=== PATIENT | female | born 1995 ===

== ENCOUNTER → 2018-11-14 | Outpatient (CLI) | payer OTHER ==
--- NOTE | 2018-11-14 16:51 | RADIOLOGY IMAGING REPORT ---
FACILITY: [facility] PATIENT NAME: Mary Poe : 1995 MR: [id number] V: [id number] EXAM DATE: ORDERING PHYSICIAN: ALEX MANNING TECHNOLOGIST: Location: [facility] Patient: Mary Poe : 1995 Visit/Account:[id number] Date of Sevice: 11/14/2018 CT VERTEBRA LUMBAR (NON CON) COMPARISONS: None. ADDITIONAL PERTINENT HISTORY: Low back pain. Patient status post discography.. TECHNIQUE: Multiple axial images were obtained through the lumbar spine without IV contrast. Solano l and sagittal reformatted images were obtained off the axial source data. One of the following dose optimization techniques was utilized in the performance of this exam: Automated exposure control; ad justment of the mA and/or kV according to the patient's size; or use of an iterative reconstruction technique. Specific details can be referenced in the facility's radiology CT exam operational policy . FINDINGS: Vertebral body heights and alignment: Negative. Vertebral bodies: Negative. Disc spaces: Patient status post discography at the levels of L5-S1, L4-L5 and L3-L4. This is extensi on of the contrast material beyond the posterior annulus in a broad-based fashion at the level of L5- S1 with a posterior broad-based disc protrusion. There is extension of contrast beyond the expected l ocation of the posterior annulus at the level of L4-L5 with a circumferential disc bulge at this leve l. Contrast remains confined within the expected location of the disc space anterior to the posterior annulus at the level of L3-L4. Thoraco-lumbar junction: Negative. Surrounding soft tissues: <Negative Visualized bony pelvis: Negative. IMPRESSION: 1. Patient status post discography at the levels of L3-L4, L4-L5 and L5-S1 as detailed above. 2. No acute appearing bony abnormalities. Report Dictated By: Efrain Tang MD at 11/14/2018 4:42 PM Report E-Signed By: Efrain Tang MD at 11/14/2018 4:45 PM WSN:[email or web address]
== END ==
LOC: CT 11:55
PROVIDERS: ATTEND Physical Medicine & Rehabilitation Pain Medicine
DX: M54.5 Low back pain (principal)
CPT/HCPCS: 72131

== ENCOUNTER → 2018-11-14 | Outpatient (CLI) | payer SELFPAY | LOC: CT 01:24 | PROVIDERS: ATTEND Physical Medicine & Rehabilitation Pain Medicine | DX: Z02.9 Encounter for administrative examinations, unspecified (principal) ==

== ENCOUNTER 2019-01-07 00:28 | Inpatient (IN) | payer OTHER ==
[2019-01-07] VITALS (14 sets, daily range): BP systolic 100–124; BP diastolic 57–83
[~2019-01-07] VITALS: Ht 162.6 cm; Wt 77.1 kg
[~2019-01-07 00:28] MED LIST: ACET-3017 PO; SCOP1PAT2 TD
[2019-01-07] MEDS ORDERED: LIDOCAINE 2% IV 100 MG/5ML SYR ONE (07:45)
[2019-01-07] MEDS ORDERED: fentaNYL CITR 250 MCG/5 ML AMP ONE (07:45)
[2019-01-07] MEDS ORDERED: PROPOFOL EMUL(*) 10MG/ML 20 ML 80 ML ONE (07:46)
[2019-01-07] MEDS ORDERED: ROCURONIUM BR 10 MG/ML 5 ML SY 5 ML ONE (07:56)
[2019-01-07] MEDS: PREGABALIN 150 MG CAPSULE PO ONE ×2 (08:13→09:03)
[2019-01-07] MEDS ORDERED: ACETAMINOPHEN(*)1000 MG/100 ML 100 ML IVPB ONE ×2 (08:25→09:23)
[2019-01-07] MEDS: FAMOTIDINE 20 MG/50 ML PREMIX IVPB ONE (08:25)
[2019-01-07] MEDS ORDERED: FAMOTIDINE 20 MG TAB PO ONE (09:10)
[2019-01-07] MEDS ORDERED: BACITRACIN 50000 UNIT/VIAL 50,000 UNIT in NS 0.9% IRRIG(*) 1000ML PLCT 1,000 ML IR PRN (09:10)
[2019-01-07] MEDS ORDERED: ACETAMINOPHEN 500 MG TAB PO ONE (09:10)
[2019-01-07] MEDS ORDERED: MIDAZOLAM 2 MG/2 ML VIAL IVP PRN (09:10)
[2019-01-07] MEDS ORDERED: NORMOSOL R SOLN(*) 1000 ML BAG 1,000 ML IV PRN (09:10)
[2019-01-07] MEDS ORDERED: ceFAZolin(*) 2GM/D5W 50ML 50 ML IVPB ONE (09:10)
[2019-01-07] MEDS ORDERED: LIDOCAINE/SOD BICARB 8.4% SYR ID ONE (09:10)
[2019-01-07] MEDS ORDERED: DEXAMETHASONE SOD PHOS 10MG/ML ONE (10:38)
[2019-01-07] MEDS ORDERED: KETAMINE HCL 200 MG/20 ML MDV ONE ×2 (10:44→11:44)
[2019-01-07] MEDS ORDERED: ONDANSETRON 4 MG/2 ML VIAL ONE (11:03)
[2019-01-07] MEDS ORDERED: SUGAMMADEX SOD 200 MG/2 ML SDV ONE (11:42)
[2019-01-07] MEDS ORDERED: PROPOFOL EMUL(*) 10MG/ML 20 ML 20 ML ONE (12:14)
[2019-01-07] MEDS ORDERED: fentaNYL CITR 100 MCG/2 ML AMP ONE ×3 (12:51→14:42)
--- NOTE | 2019-01-07 14:12 | RADIOLOGY IMAGING REPORT ---
FACILITY: [facility] PATIENT NAME: Mary Poe : 1995 MR: [id number] V: [id number] EXAM DATE: [id number] ORDERING PHYSICIAN: GENET CASAS TECHNOLOGIST: [facility] Patient: Mary Poe : 1995 Visit/Account:[id number] Date of Sevice: 01/07/2019 Exam type: C-ARM FLUORO 1 HR History: L4-S1 DISC HERNIATION/FUSION Comparison: CT November 14, 2018. Findings: Six portable intraoperative C-arm spot views over the lower lumbar spine were submitted demonstrating placement of intervertebral disc spacers with anchoring screws at the levels of L4-5 and L5-S1. The dose area product was 5.2797 Foote per centimeter squared IMPRESSION: 1. As above Report Dictated By: Lila De La Cruz MD at 01/07/2019 1:59 PM Report E-Signed By: Lila De La Cruz MD at 01/07/2019 2:03 PM WSN:[id number]
--- NOTE | 2019-01-07 14:24 | OPERATIVE REPORT 1 ---
EVENT DATE: January 07, 2019 SURGEON: Chandan Watts MD ANESTHESIOLOGIST: Jax Hodges MD ANESTHESIA: General. APPROACH SURGEON: Elliot Emanuel M.D., plus his surgery assistant. 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 POSTOPERATIVE DIAGNOSIS Lumbar degenerative disk disease with unremitting low back pain. PROCEDURE PERFORMED L4-L5 and L5-S1 anterior lumbar interbody fusion. INTRAVENOUS FLUIDS 2400 cc ESTIMATED BLOOD LOSS 60 cc IMPLANTS USED 1. Size small 13 mm tall, 8-degree lordotic interbody spacer at the L4-L5 level. 2. Size small 13 mm, 12-degree lordotic interbody device at the L5-S1 level. 3. 25 mm fixation screws x2. 4. 30 mm fixation screws x4. 5. Two 5 cc ViBone bone graft replacements. SPECIMENS None. DRAINS None. COMPLICATIONS None. DISPOSITION Post-Anesthesia Care Unit. INDICATIONS FOR SURGERY Mary is a 23-year old female who presented to my clinic with a long history of unremitting low back pain. It had been present for a few years and was initially associated with some radiating symptoms down the legs. She had relief of the leg symptoms with an injection but had ongoing significant pain in her lower back and had tried physical therapy, the injections, medications, activity modifications, all without any improvement. She had an unremarkable past medical and past surgical history with no narcotic usage or psychiatric diagnoses noted. We sent her for a lumbar diskogram and this was found to be concordant not only at the L5-S1 level, which was seen to be desiccated and degenerative on MRI but also at the L4-L5 level and there were posterior annular leaks of the contrast on CT scan at both of those levels. Secondary to ongoing symptoms, failure of nonsurgical care and the findings of the diskogram, Ms. Poe was offered and elected to undergo L4-L5 and L5-S1 anterior lumbar interbody fusion. Prior to surgery, I explained in detail to the patient the possible risks of surgery. These risks include bleeding, infection, damage to surrounding structures, nerve root injury, spinal fluid leak, infection, meningitis, failure of fixation, need for further surgery, , blindness, sexual dysfunction, autonomic nervous system dysfunction and other unforeseen medical and surgical complications. An understanding that in general spinal surgery is more predictive at improving extremity discomfort than axial spine pain was stressed. DESCRIPTION OF PROCEDURE On the date of surgery, the patient was met in the preoperative hold area and all questions were answered. The operative site was identified and marked by myself. The patient had the opportunity to speak to both me and Dr. Emanuel prior to the procedure. She was then brought in good condition to the operating room and placed in the supine position on a radiolucent Nabil table. All bony protuberances and soft tissues were well padded in the standard fashion. Care was taken to maintain appropriate perfusion pressures during anesthesia. Preoperative antibiotics were administered according to the appropriate timing schedule. A Dugan catheter was placed to decompress the bladder for the approach. At the conclusion of the procedure, sponge and instrument count were correct x2. A final time-out was undertaken by members of the operating team to confirm correct patient, correct levels and correct surgery. Dr. Emanuel then performed a retroperitoneal anterior approach to the lumbar spine. Please refer to his dictation for description of that approach. Once the spine was exposed, I started at the L4-L5 level. A knife was used to perform an anterior annulotomy of the L4-L5 disk. A Hitchcock elevator was used to separate the disk from the bony endplates of both L4 and L5. A combination of pituitary rongeurs and curettes were then used to perform a subtotal diskectomy of the L4-L5 disk. Once we had removed all cartilaginous remnants from the end plates of the vertebral body above and below to ensure that there was bony bleeding from the bony endplates, we trialed first an 11 mm implant, which was not large enough. The 13 mm implant fit well and looked good on radiographs. We, therefore, the 13 mm, 8-degree lordotic, size small implant and packed it with ViBone. This was then placed in the interbody space, where it had a good fit, and lateral radiographs confirmed appropriate placement. We then used the awl to penetrate the endplates through the integrated holes within the device and then was placed a single screw into the L5 vertebral body and two screws up into the L4 vertebral body. Radiographs were obtained that confirmed excellent placement of the device. Retractors were then moved and attention was turned to the L5-S1 level. Again, I performed an annulotomy and then used a combination of Hitchcock elevators, curettes and pituitary rongeurs to perform a subtotal diskectomy. At this level, we also selected at 13 mm implant but selected a 12-degree lordosis. This was placed under fluoroscopic guidance and again we used the awl to penetrate the endplates and then placed a single 25 mm screw into the sacrum and two 30 mm screws up into the L5 vertebral body. Final radiographs were obtained, confirming excellent positioning of both implants. The wound was then irrigated with copious sterile saline solution and closed in layers using interrupted sutures for the posterior sheath, running stitch for the anterior rectus sheath and then inverted interrupted sutures for the subcutaneous tissue and a running subcuticular skin stitch. Sponge and needle counts were correct x2. POSTOPERATIVE CARE PLAN Ms. Poe will remain in the hospital until she meets discharge criteria. She will then be discharged home and will followup with me in approximately two weeks for a wound check and examination. VAISHALI
[2019-01-07] MEDS ORDERED: ACETAMINOPHEN(*)1000 MG/100 ML 100 ML IVPB PRN (14:30)
[2019-01-07] MEDS ORDERED: LR(*) 1000 ML BAG 1,000 ML IV PRN (14:30)
[2019-01-07] MEDS ORDERED: MAGNESIUM HYDROXIDE* 30ML UDCP PO PRN (14:30)
[2019-01-07] MEDS ORDERED: diphenhydrAMINE 25 MG CAP PO PRN (14:30)
[2019-01-07] MEDS ORDERED: ACETAMINOPHEN 500 MG TAB PO PRN (14:30)
[2019-01-07] MEDS ORDERED: oxyCODONE HCL 5 MG CAP PO PRN (14:30)
[2019-01-07] MEDS ORDERED: FLUSH 10 ML SYR IVP PRN (14:30)
[2019-01-07] MEDS ORDERED: BENZOCAINE/MENTHOL 1 EACH LOZG PO PRN (14:30)
[2019-01-07] MEDS ORDERED: BISACODYL 10 MG SUPP PR PRN (14:30)
[2019-01-07] MEDS ORDERED: DIAZEPAM 5 MG TAB PO PRN (14:30)
[2019-01-07] MEDS ORDERED: ONDANSETRON 4 MG/2 ML VIAL IVP PRN (14:30)
[2019-01-07] MEDS ORDERED: HYDROmorphone HCL 2 MG/ML SDV IVP PRN (14:30)
[2019-01-07] MEDS ORDERED: PROMETHAZINE 25 MG/ML 1 ML AMP ONE (15:45)
--- NOTE | 2019-01-07 15:59 | NUR ---
Physical Therapy Impression Attempted to see Pt for PT eval and tx. Pt politely declines PT at this time due to drowsiness. Pt recently arrived to hospital room. Will attempt eval in AM. Physical Therapy Goals Patient's Goals
[2019-01-07] MEDS: ceFAZolin(*) 2GM/D5W 50ML 50 ML IVPB SCH (17:00)
[2019-01-07] MEDS ORDERED: NS(*) 0.9% 250 ML BAG 250 ML ONE (17:23)
[2019-01-07] MEDS: APAP/HYDROCODONE 325/5 TAB PO PRN (19:39)
[2019-01-07] MEDS: DOCUSATE SODIUM 100 MG CAP PO SCH (20:36)
[2019-01-08] VITALS (7 sets, daily range): BP systolic 100–123; BP diastolic 53–67
[2019-01-08] MEDS: ceFAZolin(*) 2GM/D5W 50ML 50 ML IVPB SCH ×2 (01:32→08:39)
[2019-01-08] MEDS: APAP/HYDROCODONE 325/5 TAB PO PRN ×3 (01:32→22:10)
[2019-01-08] MEDS ORDERED: LOR5/325 PO (08:02)
[2019-01-08] MEDS ORDERED: DIA5 PO (08:03)
[2019-01-08] MEDS ORDERED: DOCU240C84 PO (08:04)
[2019-01-08] MEDS: DOCUSATE SODIUM 100 MG CAP PO SCH ×2 (08:39→20:27)
--- NOTE | 2019-01-08 10:16 | NUR ---
Physical Therapy Impression Pt educated on lumbar precautions with returned verbal understanding. Pt able to safely perform functional mobility without assistance. Of concern, however, is Pt's reports of dizziness with mobility. VSS throughout treatment. Recommend Pt ambulate with nursing for additional bouts. If dizziness remains, Pt not safe to DC. If dizziness resolves, Pt safe for DC. Discussed plan with Pt and nursing, both are agreeable. Physical Therapy Goals 1. Pt tolerate functional mobility without reports of dizziness. Patient's Goals
[2019-01-09 02:30] VITALS: BP 115/70
[2019-01-09 07:02] VITALS: BP 128/71
[2019-01-09] MEDS: DOCUSATE SODIUM 100 MG CAP PO SCH (09:00)
--- NOTE | 2019-01-09 10:26 | NUR ---
Physical Therapy Impression Pt tolerated ambulation in hallway x 150' with no AD. Pt then agreeable to address stairs in ICU dept. Pt notes increased dizziness and is diaphoretic at top of stairs. Pt assisted to sit down onto upper level of stairs for a rest break and deep breathing. Pt also indicates some nausea. Pt then was able to tolerate descent of 11 steps with CGA/Min assist by PT. VS checked upon return to room and BP, HR and SpO2 all in normal limits. Nursing alerted and also checked blood sugar which was 104. Pt had some tyler julia while being wheeled back to room. Pt's lips were also very pale/purple in color. As pt rested, color in lips did return. Nursing indicates she will inform hospitalist. PT consulted with surgeon regarding any possible surgical concerns and to verify that no brace has been ordered. Dr. Watts indicates no brace is correct and recommends further consult with hospitalist as well regarding possible other sources of diaphoresis. Physical Therapy Goals 1. Pt tolerate functional mobility without reports of dizziness. Patient's Goals
[2019-01-09 11:09] LABS: PLATELET COUNT, AUTOMATED 282 K/uL (150-450)
--- NOTE | 2019-01-09 12:10 | OPERATIVE REPORT 1 ---
EVENT DATE: January 08, 2019 SURGEON: Elliot Emanuel MD ANESTHESIOLOGIST: [] ANESTHESIA: General endotracheal. FIELD SERVICE REP: [] CO-SURGEON: Chandan Watts MD PREOPERATIVE DIAGNOSIS Degenerative disk disease with radiculopathy of the L4-L5, L5-S1 disk space. POSTOPERATIVE DIAGNOSIS Degenerative disk disease with radiculopathy of the L4-L5, L5-S1 disk space. GENERAL SURGICAL PROCEDURE PERFORMED Anterior spine exposure of the L4-5, L5-S1 disk space for Dr. Chandan Watts for anterior lumbar interbody fusion of these two disk spaces. ESTIMATED BLOOD LOSS Minimal. COMPLICATIONS None. ASA Class 2. DESCRIPTION OF PROCEDURE Informed consent was obtained. The patient was placed in the supine position and prepped and draped in normal sterile fashion. He was administered general anesthesia. Time-out was completed in the operating room correct . Patient began preoperative antibiotics at this time. A left midline incision was constructed from the umbilicus towards the suprapubic region. With Bovie electrocautery, I dissected the subcutaneous tissue to the level of the anterior rectus sheath fascia. This was incised along the entire extent of the incision, at which time the rectus muscle was retracted laterally to expose the transversalis fascia below the semilunar line of Garth. This was followed posteriorly and laterally to gain access to the retroperitoneal space. The abdominal viscera and the peritoneum were retracted medially over the great vessels. Posterior rectus sheath above the semilunar of Garth was taken down laterally. The L5-S1 disk space was dissected free of surrounding tissue. The median sacral vessels were taken down with clip, cut and ligate technique. Once adequate exposure was achieved at the L5-S1 disk space, the L4-L5 disk space was then dissected free. The posterior iliolumbar vein was taken with clip, cut and ligate technique and the left iliac artery was then retracted medially over the L4-5 disk space. With the facilitation of Synthes retracting system, the spaces were adequately exposed and the case was turned over to Dr. Chandan Watts for the remainder of the spinal case. [facility]
[2019-01-09 12:22] VITALS: BP 121/70
--- NOTE | 2019-01-09 12:54 | Hospitalist Consultation ---
History of Present Illness Requesting Physician Dr. Watts Reason for Consult Dizziness with ambulation Chief Complaint Dizziness with ambulation History of Present Illness She is a 23-year-old female who is s/p lumbar fusion. She reports yesterday and today she became dizzy with ambulation. She denies any complaints at this time. She also reports she looks pale. She reports with ambulation she has been holding her breath, which then leads to dizziness and nausea. She has not been using pain medication regularly. Her last dose was last night. She has only taken Tylenol today for pain. History Problems: (1) Depression Home Meds Reported Medications Docusate Calcium (SURFAK) 240 Mg Capsule, 240 MG PO QDAY, #9 CAPSULE 01/08/19 Diazepam (VALIUM) 5 Mg Tablet, 5 MG PO Q8H for PAIN, #16 TAB 01/08/19 Hydrocodone Bit/Acetaminophen (HYDROCODON-ACETAMINOPHEN 5-325) 1 Each Tablet, 1- 2 EACH PO Q6H for PAIN, #36 TAB 01/08/19 Discontinued Reported Medications Scopolamine (Transderm-Scop) 1 Mg/3 Day Patch.td.3, 1 PATCH TD ONCE, #[address] patch behind ear the night before surgery. 01/04/19 Acetaminophen With Codeine # 3 (TYLENOL WITH CODEINE #3 TABLET) 1 Each Tablet, 1 EACH PO 1-3XD PRN for PAIN, TAB 12/31/18 Allergies: Coded Allergies: kiwi (Verified Allergy, Unknown, ITCHING, 12/31/18) pineapple (Verified Allergy, Unknown, ITCHING, 12/31/18) Hx Smoking: No Caffeine Intake: Coffee, Tea, Soda Caffeine/Cups Per Day: 2-3 CPD Hx Alcohol Use: Yes Hx Substance Use Disorder: No Review of Systems All Systems Reviewed/Normal: Yes, Except as Noted Exam Vital Signs Vital Signs Date Time Temp Pulse Resp B/P (MAP) Pulse Ox O2 Delivery O2 Flow Rate FiO2 01/09/19 10:36 92 Room Air 01/09/19 07:02 98.6 96 15 128/71 (90) 01/08/19 20:28 0.5 General Appearance: Alert, Awake, No Acute Distress, Afebrile Neuro: No Gross deficits Cardiovascular: Regular Rate and Rhythm Respiratory: No Respiratory Distress, Clear to Auscultation GI: Other (incision looks clean, dry intact) Extremities: Warm, Perfused; No Edema Psych: Alert & Oriented X3, Appropriate Mood & Affect Medical Decision Making Data Points Result Diagram: 01/09/19 1049 01/09/19 1049 Assessment and Plan Problems: (1) S/P lumbar fusion Status: Acute Assessment & Plan: Followed by Dr. Watts. She has been doing well post- operatively. (2) Dizziness Status: Acute Assessment & Plan: She reports dizziness after ambulation, likely from holding her breath. Encouraged her to continue to do deep breathing exercises during physical therapy or with ambulation. Encouraged also to try pain medication to help with ambulation and pain. Labs were normal. No signs of anemia or electrolyte abnormality. Venous Thromboembolism Antithrombotics Is Pt On Any Antithrombotics?: No Exam Sepsis Risk: No Definite Risk LEONA KENT CHASSIS MECHANIC Jan 09, 2019 12:54
[2019-01-09 15:13] VITALS: BP 122/71
--- NOTE | 2019-01-09 16:00 | NUR ---
Physical Therapy Impression Pt met PT goal of stair negotiation to access her home safely with assist from co-worker. Pt notes no dizziness, numbness or tingling with this session and lips remained pink throughout. Pt encouraged to pace herself with rest breaks and ascend/descend in a step-to pattern to ensure safety. Pt also encouraged to take deep breaths during this activity. From a mobility stand point pt has met PT goals and is ready for discharge at this time. Physical Therapy Goals 1. Pt tolerate functional mobility without reports of dizziness. Patient's Goals
== END 2019-01-09 16:10 | disposition home or self-care (01) | DRG 460 ==
LOC: OR 00:28 → MED 15:20
PROVIDERS: ADMIT Orthopaedic Surgery; ATTEND Orthopaedic Surgery
PROC: 0SG30A0 Fusion of Lumbosacral Joint with Interbody Fusion Device, Anterior Approach, Anterior Column, Open Approach (ICD-10-PCS; 2019-01-07)
PROC: 0ST20ZZ Resection of Lumbar Vertebral Disc, Open Approach (ICD-10-PCS; 2019-01-07)
PROC: 0ST40ZZ Resection of Lumbosacral Disc, Open Approach (ICD-10-PCS; 2019-01-07)
PROC: 0SG00A0 Fusion of Lumbar Vertebral Joint with Interbody Fusion Device, Anterior Approach, Anterior Column, Open Approach (ICD-10-PCS; principal; 2019-01-07 10:37)
DX: M51.36 Other intervertebral disc degeneration, lumbar region (principal); M51.37 Other intervertebral disc degeneration, lumbosacral region; F32.9 Major depressive disorder, single episode, unspecified
CPT/HCPCS: 36415; 36416; 76000; 81025; 82040; 82247; 82310; 82374; 82435; 82565; 82947; 82948; 84075; 84132; 84155; 84295; 84450; 84460; 84520; 85025; 86850; 86900; 86901; 95940; 97161; C1713; J0131; J0690; J1100; J1170; J2001; J2250; J2405; J2550; J2704; J3010; J3490; J7050